=== PATIENT | female | born 1965 | race Two or more races ===

== ENCOUNTER → 2025-04-30 | Outpatient (CLI) | payer MEDICAID, SELFPAY ==
--- NOTE | 2025-04-30 11:00 | XR_ITS ---
Examination: Screening digital mammography, bilateral Computer aided detection 3-D breast Tomosynthesis, bilateral Date and time of exam: April 30, 2025 1101 hours Compared to mammograms dating to October 13, 2006 Indication: Screening Technique: Nonmagnified MLO, CC views of the breasts to been obtained, reconstructed from 3-D Tomosynthesis images. R2 computer aided detection program utilized for evaluation of suspicious masses and/or abnormal calcifications. 3-D Tomosynthesis images obtained. Findings: Scattered areas of fibroglandular density. Skin lesion upper right breast Benign calcifications. No interval suspicious masses Impression: BI-RADS category II: Benign Findings. Recommend 1 year follow-up mammogram.
== END | disposition home or self-care (01) ==
LOC: CDIM 10:47
PROVIDERS: Referring Provider Registered Nurse Community Health; Visit Provider Registered Nurse Community Health
DX: Z12.31 Encounter for screening mammogram for malignant neoplasm of breast (principal); R92.323 Mammographic fibroglandular density, bilateral breasts; R92.1 Mammographic calcification found on diagnostic imaging of breast
CPT/HCPCS: 77063; 77067